=== PATIENT | female | born 1970 | race Caucasian/White ===

== ENCOUNTER → 2018-11-30 12:42 | Outpatient (CLI) | payer BC, SELFPAY ==
--- NOTE | 2018-11-30 | DI.US.S_ITS ---
PROCEDURE: US PERIPH VENOUS LOW EXTREM RT INDICATIONS: PAIN IN RIGHT LOWER LEG TECHNIQUE: Real-time imaging, as well as color and pulse Doppler interrogation, were performed of the lower extremity deep veins from the inguinal ligament to the popliteal fossa. COMPARISON: None. FINDINGS: The common femoral, femoral and popliteal veins are normally compressible, and free of intraluminal thrombus. Color and pulse Doppler demonstrate normal phasic intraluminal flow. There is normal augmentation response to distal compression maneuver. There is a complicated appearing Kapoor's cyst seen without increased vascularity that measures 4 x 1 x 3.1 cm. IMPRESSION: Negative for deep venous thrombosis. Dictated by: Tyree Kenney M.D. on 11/30/2018 at 12:28 Approved by: Tyree Kenney M.D. on 11/30/2018 at 12:29
== END ==
PROVIDERS: Visit Provider Physician Assistant Medical
DX: M79.661 Pain in right lower leg (principal); R22.41 Localized swelling, mass and lump, right lower limb; M71.21 Synovial cyst of popliteal space [Baker], right knee
CPT/HCPCS: 93971

== ENCOUNTER → 2018-12-09 16:20 | Outpatient (CLI) | payer BC, SELFPAY ==
--- NOTE | 2018-12-09 16:25 | DI.RAD.S_ITS ---
PROCEDURE: XR KNEE RT 3V INDICATIONS: RIGHT KNEE PAIN TECHNIQUE: 3 views of the knee were acquired. COMPARISON: [facility], , KNEE 3V LEFT, 06/01/2013, 12:32. FINDINGS: Bones: No fractures or dislocations. No suspicious bony lesions. There is small intercondylar osteophytes. Soft tissues: No joint effusion. No suspicious soft tissue calcifications. IMPRESSION: Mild degenerative change. Dictated by: Fariha Cunningham M.D. on 12/09/2018 at 16:50 Approved by: Fariha Cunningham M.D. on 12/09/2018 at 16:51
== END ==
PROVIDERS: Visit Provider Family Medicine
DX: M25.561 Pain in right knee (principal); M25.761 Osteophyte, right knee
CPT/HCPCS: 73562

== ENCOUNTER → 2019-01-04 13:57 | Outpatient (CLI) | payer BC, SELFPAY ==
--- NOTE | 2019-01-04 | DI.MRI.S_ITS ---
PROCEDURE: MR KNEE RT WO CON INDICATIONS: RIGHT KNEE PAIN TECHNIQUE: Noncontrast sagittal PD fast spin echo and T2 fast spin echo with fat saturation, sagittal 3-D FLASH with fat saturation; coronal T1 spin echo and PD fast spin echo with fat saturation, and axial PD fast spin echo with fat saturation through the knee. COMPARISON: [facility], CR, XR KNEE RT 3V, 12/09/2018, 16:25. FINDINGS: Image quality: Excellent. Menisci: The linear oblique high T2 signal intensity traverses the posterior horn and body of the medial meniscus, demonstrating superior and inferior articular surface extension, indicating complex tearing. Lateral meniscus is intact. There is detachment of the anterior horn lateral meniscus. Cruciate ligaments: The anterior and posterior cruciate ligaments appear intact. Medial structures: There is a small amount of fluid signal within the medial collateral ligament posterior fibers. Visualized portions of the pes anserinus tendons appear normal. No abnormal bursal fluid. Lateral structures: The lateral collateral ligament, long and short heads of the biceps femoris tendon appear intact. The popliteus tendon appears normal. Iliotibial band appears normal. Anterior structures: The quadriceps and patellar tendons appear intact. Patellar alignment is normal. No femoral trochlear dysplasia or ventral trochlear prominence. No edema in the infrapatellar fat pad. Venous varices are present within the anterior subcutaneous fat. Bones and cartilage: No bone marrow contusions or fractures. There is mild periarticular osteophyte formation at the medial and patellofemoral compartment margins. There is moderate to severe diffuse articular cartilage loss overlying the weightbearing aspects of the medial femoral condyle and medial tibial plateau. Mild diffuse articular cartilage loss overlies the weightbearing aspects of the lateral femoral condyle and lateral tibial plateau. Severe articular cartilage loss overlies the mid/superior aspect of the patellar apex. There are a few small underlying interosseous ganglion within the patellar apex. Joint space: There is a moderate knee joint effusion and a small Kapoor's cyst. Normal appearing synovial plicae are incidentally noted. IMPRESSION: 1. Tricompartmental osteoarthritis with associated articular cartilage loss. 2. Medial meniscal tearing. 3. Low-grade partial-thickness medial collateral ligament tear. 4. Knee joint effusion and Kapoor's cyst. 5. Venous varices anteriorly. Dictated by: Jac Peguero M.D. on 01/04/2019 at 15:45 Approved by: Jac Peguero M.D. on 01/04/2019 at 15:50
== END ==
PROVIDERS: Visit Provider Orthopaedic Surgery
DX: M25.561 Pain in right knee (principal); S83.231A Complex tear of medial meniscus, current injury, right knee, initial encounter; S83.421A Sprain of lateral collateral ligament of right knee, initial encounter; M25.461 Effusion, right knee; M71.21 Synovial cyst of popliteal space [Baker], right knee; I83.91 Asymptomatic varicose veins of right lower extremity
CPT/HCPCS: 73721